=== PATIENT | female | born 1975 | race Caucasian/White ===

== ENCOUNTER 2025-06-10 06:09 | Day surgery (SDC) | payer BC, SELFPAY ==
[2025-06-06 07:56] LABS: Hematocrit 39.9 % (37.0-47.0); Hemoglobin 13.6 g/dL (12.0-16.0); Mean Corp Hgb Conc. 34.1 g/dL (33.0-37.0); Mean Corpuscular Volume 92.1 fL (81.0-99.0); Nucleated Red Blood Cells % 0 %; Platelet Count 271 10^3/uL (130-400); Red Cell Dist. Width 12.3 % (11.5-14.5)
[2025-06-06 08:05] LABS: Blood Urea Nitrogen 12 mg/dl (7-17); Calcium 9.1 mg/dl (8.4-10.2); Carbon Dioxide 30 mmol/L (22-30); Chloride 105 mmol/L (98-107); Glucose 85 mg/dl (70-99); Potassium 4.7 mmol/L (3.5-5.1); Sodium 139 mmol/L (135-145); eGFR > 60.00
[2025-06-10] VITALS (10 sets, daily range): BP systolic 89–109; BP diastolic 50–66; BMI 23.7
[2025-06-10] MEDS: TYLENOL 1000 MG PO (09:20)
[2025-06-10] MEDS: CELEBREX 200 MG PO (09:21)
[2025-06-10] MEDS: NORMOSOL-R/PLASMALYTE-A 1000 IV (09:28)
== END 2025-06-10 12:30 | disposition home or self-care (01) ==
LOC: SDS 06:09
PROVIDERS: ATTENDING PHYSICIAN Specialist; FAMILY PHYSICIAN Nurse Practitioner Family
DX: S83.242A Other tear of medial meniscus, current injury, left knee, initial encounter (principal); X58.XXXA Exposure to other specified factors, initial encounter; Z98.890 Other specified postprocedural states
CPT/HCPCS: 29881; 36415; 80048; 85025; 93005